=== PATIENT | female | born 1985 | race Caucasian/White ===

== ENCOUNTER 2020-05-09 17:06 | Inpatient (IN) | payer MEDICAID, OTHER ==
[~2020-05-09] VITALS: Ht 160 cm; Wt 51.8 kg
[~2020-05-09 17:06] MED LIST: ARIP10TA8 PO; TERB12CR3 TP
[2020-05-09 18:41] LABS: BASOPHILS % (AUTO) 0.7 % (0.0-2.0); EOSINOPHILS % (AUTO) 1.3 % (1.0-6.0); HEMATOCRIT 42.9 % (36-46); HEMOGLOBIN 14.3 g/dL (12.0-16.0); LYMPHOCYTES # (AUTO) 3.3 K/uL (1.0-4.8); LYMPHOCYTES % (AUTO) 35.3 % (22.0-44.0); MEAN CORPUSCULAR HEMOGLOBIN 29.9 pg (26.0-34.0); MEAN CORPUSCULAR HGB CONC 33.4 G/dL (31.0-37.0); MEAN CORPUSCULAR VOLUME 90 fL (80-100); MONOCYTES # (AUTO) 0.7 K/uL (0.1-1.0); MONOCYTES % (AUTO) 7.2 % (2.0-9.0); NEUTROPHILS # (AUTO) 5.2 K/uL (1.8-7.7); NEUTROPHILS % (AUTO) 55.5 % (40.0-70.0); PLATELET COUNT (AUTO) 297 K/uL (150-450); RED BLOOD CELL COUNT(AUTO) 4.79 MIL/uL (4.00-5.20); RED CELL DISTRIBUTION WIDTH 14.5 % (11.5-14.5)
[2020-05-09 18:55] LABS: ANION GAP 9 mmol/L (8-16); CALCIUM, TOTAL 8.6 mg/dL (8.8-10.5); CARBON DIOXIDE 27 mmol/L (22-29); CHLORIDE 103 mmol/L (98-107); CREATININE 0.56 mg/dL (0.60-1.30); GLOMERULAR FILTR. RATE CALC > 60 mL/min (>60); GLUCOSE,RANDOM 83 mg/dL (70-110); POTASSIUM 4.3 mmol/L (3.5-5.1); SODIUM SERUM 139 mmol/L (136-145); UREA NITROGEN, BLOOD 15 mg/dL (7-18)
[2020-05-09 19:01] LABS: ALANINE AMINOTRANSFERASE 23 U/L (12-78); ALBUMIN 4.3 g/dL (3.4-5.0); ALKALINE PHOSPHATASE 121 U/L (46-116); ASPARTATE AMINOTRANSFERASE 17 U/L (15-37); BILIRUBIN,TOTAL 0.8 mg/dL (0.1-1.0); TOTAL PROTEIN, SERUM 8.1 g/dL (6.4-8.2)
[2020-05-09] MEDS ORDERED: ZOLPIDEM TARTRATE 10 MG TABLET PO PRN (20:00)
[2020-05-09 20:21] LABS: HCG,QUANTITATIVE < 1 mIU/mL (0-6)
[2020-05-09 21:48] VITALS: BP 126/88
[2020-05-10] MEDS ORDERED: ALBUTEROL SULFATE HFA 90 MCG/PUFF 8 GM INHALER IH PRN (06:45)
[2020-05-10] MEDS ORDERED: CloNIDine HCL 0.1 MG TABLET PO PRN (06:45)
[2020-05-10] MEDS ORDERED: MAG HYDROX/AL HYDROX/SIMETH ES 30 ML SUSPENSION UDCUP PO PRN (06:45)
[2020-05-10] MEDS ORDERED: BACITRACIN 28.4 GM OINTMENT TP PRN (06:45)
[2020-05-10] MEDS ORDERED: BENZOCAINE/MENTHOL LOZENGE MM PRN (06:45)
[2020-05-10] MEDS ORDERED: OMEPRAZOLE 20 MG CAPSULE PO PRN (06:45)
[2020-05-10] MEDS ORDERED: DOCUSATE SODIUM 100 MG CAPSULE PO PRN (06:45)
[2020-05-10] MEDS ORDERED: IBUPROFEN 600 MG TABLET PO PRN (06:45)
[2020-05-10] MEDS ORDERED: LOPERAMIDE HCL 2 MG CAPSULE PO PRN (06:45)
[2020-05-10] MEDS ORDERED: PETROLATUM,WHITE 28 GM JELLY TP PRN (06:45)
[2020-05-10] MEDS ORDERED: ONDANSETRON HCL 4 MG TABLET PO PRN (06:45)
[2020-05-10] MEDS ORDERED: MAGNESIUM HYDROXIDE SUSPENSION 30 ML UDCUP PO PRN (06:45)
[2020-05-10] MEDS ORDERED: ACETAMINOPHEN 325 MG TABLET PO PRN (06:45)
[2020-05-10] MEDS: LORazepam 2 MG TABLET PO PRN (12:27)
[2020-05-10 16:38] VITALS: BP 105/68
[2020-05-11 08:47] VITALS: BP 135/82
[2020-05-11] MEDS: HALOPERIDOL 5 MG TABLET PO PRN (11:04)
[2020-05-11] MEDS: LORazepam 2 MG TABLET PO PRN (11:04)
[2020-05-11 16:00] VITALS: BP 101/79
[2020-05-11] MEDS: DIVALPROEX SODIUM 500 MG DR TABLET PO SCH (16:36)
[2020-05-11] MEDS: RisperiDONE 3 MG TABLET PO SCH (16:36)
[2020-05-11 20:54] VITALS: BP 100/74
[2020-05-12] MEDS: DIVALPROEX SODIUM 500 MG DR TABLET PO SCH ×2 (08:39→16:03)
[2020-05-12] MEDS: RisperiDONE 3 MG TABLET PO SCH ×2 (08:40→16:03)
[2020-05-12 10:38] VITALS: BP 101/70
[2020-05-12 16:00] VITALS: BP 116/76
[2020-05-12] MEDS: LORazepam 2 MG TABLET PO PRN (16:03)
[2020-05-12 16:40] VITALS: BP 111/72
[2020-05-13 08:00] VITALS: BP 110/64
[2020-05-13] MEDS: HALOPERIDOL 5 MG TABLET PO PRN (09:20)
[2020-05-13] MEDS: DIVALPROEX SODIUM 500 MG DR TABLET PO SCH ×2 (09:20→16:16)
[2020-05-13] MEDS: LORazepam 2 MG TABLET PO PRN ×2 (09:20→16:19)
[2020-05-13] MEDS: RisperiDONE 3 MG TABLET PO SCH ×2 (09:20→16:16)
[2020-05-13 16:00] VITALS: BP 98/64
[2020-05-14 08:00] VITALS: BP 95/60
[2020-05-14] MEDS: RisperiDONE 3 MG TABLET PO SCH ×2 (09:43→16:53)
[2020-05-14] MEDS: DIVALPROEX SODIUM 500 MG DR TABLET PO SCH ×2 (09:43→16:53)
[2020-05-14] MEDS: LORazepam 2 MG TABLET PO PRN ×2 (13:36→18:00)
[2020-05-14 16:00] VITALS: BP 104/70
[2020-05-15 01:03] VITALS: BP 106/73
[2020-05-15] MEDS: LORazepam 2 MG TABLET PO PRN (01:03)
[2020-05-15 08:00] VITALS: BP 98/60
[2020-05-15] MEDS ORDERED: DIVA-112 PO (09:06)
[2020-05-15] MEDS ORDERED: RISP3TAB14 PO (09:09)
[2020-05-15] MEDS: RisperiDONE 3 MG TABLET PO SCH (09:46)
[2020-05-15] MEDS: DIVALPROEX SODIUM 500 MG DR TABLET PO SCH (09:46)
== END 2020-05-15 09:50 | disposition home or self-care (01) | DRG 885 ==
LOC: EMS 17:07 → 3EI 19:52
PROVIDERS: ADMIT Psychiatry & Neurology Psychiatry; ATTEND Psychiatry & Neurology Psychiatry
DX: F25.9 Schizoaffective disorder, unspecified (principal); F41.9 Anxiety disorder, unspecified; F17.210 Nicotine dependence, cigarettes, uncomplicated; G47.00 Insomnia, unspecified; K59.00 Constipation, unspecified; Z59.0 Homelessness
CPT/HCPCS: G0480